=== PATIENT | male | born 1995 | race African-American/Black ===

== ENCOUNTER 2020-04-16 11:46 | Day surgery (SDC) | payer BC ==
[~2020-04-16] VITALS: Ht 182.9 cm; Wt 66.0 kg
[2020-04-16] MEDS ORDERED: OXYcodone/APAP 5/325MG TABLET PO ONE (12:00)
[2020-04-16] MEDS ORDERED: OXYcodone/APAP 5/325MG TABLET ONE (12:02)
--- NOTE | 2020-04-16 12:41 | NUR ---
pt reports pain improvement
[2020-04-16] MEDS ORDERED: SODIUM CHLORIDE FLUSH 10ML SYR IVF ONE (14:00)
--- NOTE | 2020-04-16 14:05 | NUR ---
PT TO BE ADMITTED FOR SURGERY. PT EDUCATED ON PLAN OF CARE. IV STARTED.
[2020-04-16] MEDS ORDERED: ONDANSETRON 2MG/ML, 2ML ONE ×2 (14:15→16:06)
[2020-04-16] MEDS ORDERED: MORPHINE SULFATE 4 MG/ML, 1ML ONE (14:15)
[2020-04-16] MEDS ORDERED: ONDANSETRON 2MG/ML, 2ML IVPush ONE (14:30)
[2020-04-16] MEDS ORDERED: MORPHINE SULFATE 4 MG/ML, 1ML IVPush PRN (14:30)
[2020-04-16] MEDS ORDERED: MIDAZOLAM 1 MG/ML, 2ML ONE (14:52)
[2020-04-16] MEDS ORDERED: FENTANYL PF 250 MCG/5ML ONE (14:53)
[2020-04-16] MEDS ORDERED: BUPIVACAINE/PF 0.5% ONE (15:04)
[2020-04-16] MEDS ORDERED: EPINEPHRINE 1 MG/ML, 1ML ONE (15:04)
[2020-04-16] MEDS ORDERED: KETOROLAC 30 MG/1 ML ONE (15:37)
[2020-04-16] MEDS ORDERED: LIDOCAINE 1%-EPI 1:100K, 20ML ONE (15:54)
[2020-04-16] MEDS ORDERED: BUPIVACAINE/EPI 0.5% 1:200K ONE (15:54)
[2020-04-16] MEDS ORDERED: PROPOFOL 10 MG/ML, 20ML ONE (16:06)
[2020-04-16] MEDS ORDERED: DEXAMETHASONE 4 MG/ML, 1ML ONE (16:06)
[2020-04-16] MEDS ORDERED: CEFAZOLIN 1,000 MG ONE (16:06)
[2020-04-16] MEDS ORDERED: OXYcodone 5 MG/5 ML ORAL.SOL UDC ONE (16:29)
[2020-04-16] MEDS ORDERED: MEPERIDINE/PF 100 MG/ML ONE (16:29)
[2020-04-16] MEDS ORDERED: PROMETHAZINE 25 MG/ML, 1ML IVPush PRN (16:30)
[2020-04-16] MEDS ORDERED: LABETALOL 5MG/ML, 20ML IV PRN (16:30)
[2020-04-16] MEDS ORDERED: DIPHENHYDRAMINE 50 MG/ML, 1ML IVPush PRN (16:30)
[2020-04-16] MEDS ORDERED: HALOPERIDOL 5 MG/ML IV PRN (16:30)
[2020-04-16] MEDS ORDERED: hydrALAzine 20 MG/ML, 1ML IV PRN (16:30)
[2020-04-16] MEDS ORDERED: MEPERIDINE/PF 25MG/0.5ML IVPush PRN (16:30)
[2020-04-16] MEDS ORDERED: HYDROmorphone 1 MG/ML, 1ML INJ IVPush PRN (16:30)
[2020-04-16] MEDS ORDERED: OXYcodone 5 MG/5 ML ORAL.SOL UDC PO PRN (16:30)
[2020-04-16] MEDS ORDERED: FENTANYL PF 100 MCG/2ML IV PRN (16:30)
[2020-04-16 17:38] VITALS: BP 120/75
[2020-04-16] MEDS ORDERED: MELO7.5T31 PO (18:05)
[2020-04-16] MEDS ORDERED: HYDR-3240 PO (18:05)
== END 2020-04-16 18:45 | disposition home or self-care (01) ==
LOC: ED 12:31 → EDSTATUS 13:41 → UNDOADMIN 14:19 → EDIP 14:19 → ED 16:16 → 4NE 17:22 → EDIP 17:22 → ED 18:45 → UNDODISIN 19:25
PROVIDERS: ATTEND Emergency Medicine
DX: S63.054A Dislocation of other carpometacarpal joint of right hand, initial encounter (principal); S62.314A Displaced fracture of base of fourth metacarpal bone, right hand, initial encounter for closed fracture; Z11.59 Encounter for screening for other viral diseases; F17.210 Nicotine dependence, cigarettes, uncomplicated; F31.9 Bipolar disorder, unspecified; J45.909 Unspecified asthma, uncomplicated; F20.9 Schizophrenia, unspecified; G89.11 Acute pain due to trauma; W23.0XXA Caught, crushed, jammed, or pinched between moving objects, initial encounter; Y93.89 Activity, other specified; Y92.89 Other specified places as the place of occurrence of the external cause; Y99.8 Other external cause status; Z79.899 Other long term (current) drug therapy; Z72.89 Other problems related to lifestyle
CPT/HCPCS: 26608; 26675; 73110; 73120; 73130; 76000; 87635; 96374; 96375; 99285; C1713; J0690; J1100; J1885; J2250; J2270; J2405; J2704; J3010; J3490; G0378; J0171

== ENCOUNTER 2021-03-15 15:33 | Emergency (ER) | payer BC ==
[~2021-03-15] VITALS: Ht 182.9 cm; Wt 69.0 kg
[~2021-03-15 15:33] MED LIST: HYDR-2214 PO; MELO7.5T31 PO
[2021-03-15 16:23] LABS: BASOPHILS % (AUTO) 0 % (0-1); EOSINOPHILS % (AUTO) 0 % (1-7); LYMPHOCYTES % (AUTO) 8 % (22-44); MEAN CORPUSCULAR HEMOGLOBIN 28.5 pg (27.5-34.5); MEAN CORPUSCULAR HGB CONC 32.8 g/dL (33.2-36.2); MEAN PLATELET VOLUME 7.7 fL (7.4-10.4); MONOCYTES % (AUTO) 4 % (2-9); NEUTROPHILS % (AUTO) 88 % (42-75); PLATELET COUNT 295 x10^3/uL (130-400); RED BLOOD COUNT 5.28 x10^6/uL (4.38-5.82); RED CELL DISTRIBUTION WIDTH 13.4 % (9.4-14.8)
[2021-03-15] MEDS ORDERED: SODIUM CHLORIDE 0.9% 1,000ML IVBOLUS ONE (16:30)
[2021-03-15 16:32] LABS: ALANINE AMINOTRANSFERASE 35 U/L (12-78); ALBUMIN 4.2 g/dL (3.4-5.0); ANION GAP 13 mmol/L (5-15); CALCIUM 8.8 mg/dL (8.5-10.1); CHLORIDE 108 mmol/L (98-107); CREATININE 0.96 mg/dL (0.7-1.3)
[2021-03-15 16:34] LABS: ALKALINE PHOSPHATASE 75 U/L (45-117); BILIRUBIN,TOTAL 1.1 mg/dL (0.2-1.0); TOTAL PROTEIN 7.9 g/dL (6.4-8.2)
[2021-03-15 18:33] VITALS: BP 121/87
--- NOTE | 2021-03-15 18:46 | NUR ---
REPORT RECIEVED FROM RIVERA JARQUIN
--- NOTE | 2021-03-15 18:49 | NUR ---
REPORT TO RIVERA NAPOLES.
== END 2021-03-15 19:14 | disposition home or self-care (01) ==
LOC: ED 19:05
DX: R55 Syncope and collapse (principal); F10.10 Alcohol abuse, uncomplicated; J45.909 Unspecified asthma, uncomplicated; Y90.0 Blood alcohol level of less than 20 mg/100 ml
CPT/HCPCS: 36415; 80053; 82550; 83690; 85025; 96360; 99283; J7030